=== PATIENT | male | born 1975 | race Caucasian/White ===

== ENCOUNTER 2016-10-21 05:20 | Day surgery (SDC) | payer OTHER ==
[~2016-10-21 05:20] MED LIST: COZAAR50 M1 PO; FISH OIL 1,2001 EAC4 PO; MECLIZINE HCL25 M3 PO; ONE DAILY1 EAC4 PO; PREDNISONE20 M1 PO; VITAMIN D3400 UNI4 PO
== END 2016-10-21 12:35 ==
LOC: SRG 05:20 → SHSB 05:21 → ORW 07:26 → PACU 09:32 → SHSB 10:15
PROC: 0WUF4JZ Supplement Abdominal Wall with Synthetic Substitute, Percutaneous Endoscopic Approach (ICD-10-PCS; principal; 2016-10-21)
PROC: 8E0W4CZ Robotic Assisted Procedure of Trunk Region, Percutaneous Endoscopic Approach (ICD-10-PCS; 2016-10-21)
DX: K43.9 Ventral hernia without obstruction or gangrene (principal); K42.9 Umbilical hernia without obstruction or gangrene; I10 Essential (primary) hypertension; F41.9 Anxiety disorder, unspecified; Z79.899 Other long term (current) drug therapy; Z88.8 Allergy status to other drugs, medicaments and biological substances; Z90.89 Acquired absence of other organs; Z98.890 Other specified postprocedural states
CPT/HCPCS: C1781; C9290; J0690; J2550; J3010